=== PATIENT | female | born 1975 | race Two or more races ===

== ENCOUNTER 2021-04-02 11:00 | Outpatient (CLI) | payer OTHER | END 2021-06-01 15:57 | disposition home or self-care (01) | LOC: PPH VACUNA 11:00 | DX: Z23 Encounter for immunization (principal) ==

== ENCOUNTER 2022-11-18 07:48 | Outpatient (CLI) | payer OTHER | END 2022-11-18 08:01 | disposition home or self-care (01) | LOC: SONOGRAMA 07:48 | DX: R10.13 Epigastric pain (principal) ==

== ENCOUNTER → 2025-02-07 | Emergency (ER) | payer OTHER ==
[~2025-02-07] VITALS: Ht 170.2 cm; Wt 63.5 kg
== END | disposition left against medical advice (07) ==
LOC: ER 16:15
DX: R10.21 Pelvic and perineal pain right side (principal)

== ENCOUNTER 2025-02-13 07:24 | Outpatient (CLI) | payer OTHER | END 2025-02-13 07:27 | disposition home or self-care (01) | LOC: TOM 07:24 | PROVIDERS: ATTEND Internal Medicine | DX: R10.13 Epigastric pain (principal); R10.12 Left upper quadrant pain ==